=== PATIENT | male | born 1975 | race Caucasian/White ===

== ENCOUNTER → 2016-07-22 | Outpatient (CLI) | payer OTHER ==
--- NOTE | 2016-07-23 09:25 | DI ---
Indication: ITS.REASON: DX TESTING PROCEDURE: TIB-FIB RIGHT 2 VIEW: Encounter: Initial Comparison: None Findings: There is no acute fracture, dislocation or malalignment identified. Previously internally fixed healed distal fibular fracture. Orthopedic screw within the fifth metatarsal as well. Evidence of prior hardware removal from the distal tibia and calcaneus. Impression: No acute osseous abnormality. .
--- NOTE | 2016-07-23 09:26 | DI ---
INDICATION: ITS.REASON: DX TESTING PROCEDURE: CHEST 2-VIEWS UPRIGHT (PA \T\ LAT) Encounter: Initial COMPARISON: None FINDINGS: The lungs are clear without evidence of focal abnormal airspace opacity. There is no pleural effusion or pneumothorax. The heart size, mediastinal contours and pulmonary vascularity are within normal limits. There is no significant skeletal abnormality. IMPRESSION: No acute cardiopulmonary disease. .
== END ==
LOC: IMA 17:41
DX: Z02.89 Encounter for other administrative examinations (principal)